=== PATIENT | female | born 1965 | race Asian ===

== ENCOUNTER 2024-12-29 13:51 | Inpatient (IN) | payer MEDICAID, OTHER ==
[~2024-12-29] VITALS: Ht 160 cm; Wt 51.7 kg
[2024-12-29 13:53] VITALS: BP 135/89
[2024-12-29 14:36] LABS: PLATELET COUNT (AUTO) 242 K/uL (179-408); RED BLOOD CELL COUNT(AUTO) 3.95 MIL/uL (3.63-4.92); RED CELL DISTRIBUTION WIDTH 13.5 % (12.3-17.7); WHITE BLOOD COUNT (AUTO) 4.3 K/uL (3.8-11.8)
[2024-12-29 14:42] LABS: CREATININE 0.7 mg/dL (0.6-1.3); SODIUM SERUM 140 mmol/L (136-145); UREA NITROGEN, BLOOD 6 mg/dL (7-18)
[2024-12-29 14:54] LABS: *BILIRUBIN,URIN NEGATIVE (NEGATIVE); *BLOOD, URINE 1+ (NEGATIVE); *CLARITY,URINE CLEAR (CLEAR); *COLOR,URINE YELLOW (YELLOW); *KETONES,URINE NEGATIVE (NEGATIVE); *PROTEIN,URINE NEGATIVE (NEGATIVE); *UROBILINOGEN,URINE 0.2 E.U./dl (NORMAL); LEUKOCYTE ESTERASE ,URINE NEGATIVE (NEGATIVE); NITRITE, URINE NEGATIVE (NEGATIVE); UGLUCOSE 3+ (NEGATIVE)
[2024-12-29 14:58] LABS: ASPARTATE AMINOTRANSFERASE 40 U/L (15-37); TOTAL PROTEIN, SERUM 7.2 g/dL (6.4-8.2)
[2024-12-29 15:01] LABS: SQUAMOUS EPITHELIAL CELL,UR FEW /HPF (NONE SEEN)
[2024-12-29] MEDS ORDERED: DEXTROSE 50% 50 ML DISP.SYRIN IV PRN ×2 (18:45→21:30)
[2024-12-29] MEDS ORDERED: INSULIN REGULAR, HUMAN 1000 UNIT/10 ML VIAL SQ PRN (18:45)
[2024-12-29 18:58] LABS: ETHANOL < 3 MG/DL (0-10)
[2024-12-29 19:00] LABS: *AMPHETAMINE, URINE NEGATIVE (NEGATIVE); *BARBITURATE, URINE NEGATIVE (NEGATIVE); *BENZODIAZEPINE, URINE NEGATIVE (NEGATIVE); *CANNABINOID, URINE POSITIVE (NEGATIVE); *COCCAINE, URINE NEGATIVE (NEGATIVE); *OPIATE, URINE NEGATIVE (NEGATIVE); *PHENCYCLIDINE SCREEN,URINE NEGATIVE (NEGATIVE)
[2024-12-29 19:19] LABS: FENTANYL, URINE NEGATIVE (NEGATIVE)
[2024-12-29] MEDS ORDERED: HYDROCODONE/APAP 5-325MG TABLET PO PRN (19:45)
[2024-12-29] MEDS: METFORMIN HCL 500 MG TABLET PO SCH (20:00)
[2024-12-29] MEDS ORDERED: MAGNESIUM HYDROXIDE 30 ML LIQUID UDC PO PRN (20:30)
[2024-12-29] MEDS ORDERED: MAG HYDROX/AL HYDROX/SIMETH 30 ML LIQUID UDC PO PRN (20:30)
[2024-12-29] MEDS: BLOOD SUGAR DIAGNOSTIC 1 EACH STRIP VI ONE (20:30)
[2024-12-29] MEDS: INSULIN GLARGINE,HUM 300 UNITS/3 ML CARTRIDGE SQ SCH (21:00)
[2024-12-29] MEDS: INSULIN REGULAR, HUMAN 1000 UNIT/10 ML VIAL SQ ONE (21:23)
[2024-12-29] MEDS: BLOOD SUGAR DIAGNOSTIC 1 EACH STRIP VI SCH (21:24)
[2024-12-29] MEDS: INSULIN REGULAR, HUMAN 1000 UNIT/10 ML VIAL SQ SCH (21:30)
[2024-12-29] MEDS ORDERED: INSULIN GLARGINE,HUM 300 UNITS/3 ML CARTRIDGE SQ ONE (21:37)
[2024-12-29] MEDS: LORAZEPAM 1 MG TABLET PO PRN (22:33)
[2024-12-29] MEDS: TEMAZEPAM 7.5 MG CAPSULE PO PRN (23:49)
[2024-12-29] MEDS: ACETAMINOPHEN 325 MG TABLET PO PRN (23:49)
[2024-12-30] MEDS ORDERED: PREG-233 PO (04:58)
[2024-12-30] MEDS ORDERED: GABA300C PO (04:58)
[2024-12-30] MEDS ORDERED: PANT40TA2 PO (04:58)
[2024-12-30] MEDS ORDERED: FLUO40CA49 PO (04:58)
[2024-12-30] MEDS ORDERED: MELA5TAB20 PO (04:58)
[2024-12-30] MEDS ORDERED: BUDE10.2 INH (04:58)
[2024-12-30] MEDS ORDERED: HYDR-4676 PO (04:58)
[2024-12-30] MEDS ORDERED: DOCU100C36 PO (04:58)
[2024-12-30] MEDS ORDERED: ASPI81TA31 PO (04:58)
[2024-12-30] MEDS ORDERED: LIDO30AD10 TD (04:58)
[2024-12-30] MEDS ORDERED: TRAZ-257 PO (04:58)
[2024-12-30] MEDS ORDERED: ROSU40TA PO (04:58)
[2024-12-30] MEDS: BLOOD SUGAR DIAGNOSTIC 1 EACH STRIP VI SCH (06:48)
[2024-12-30 08:07] LABS: SODIUM SERUM 140.0 mmol/L (136-145)
[2024-12-30 08:08] LABS: ASPARTATE AMINOTRANSFERASE 18.0 U/L (15-37); CREATININE 0.7 mg/dL (0.6-1.3); TOTAL PROTEIN, SERUM 6.1 g/dL (6.4-8.2); UREA NITROGEN, BLOOD 7.0 mg/dL (7-18)
[2024-12-30 08:53] VITALS: BP 112/55; TEMP 98; O2SAT 98
[2024-12-30] MEDS: FLUOXETINE HCL 20 MG CAPSULE PO SCH (10:32)
[2024-12-30] MEDS ORDERED: ACET-3752 PO (11:01)
[2024-12-30] MEDS ORDERED: ALBU8.5H8 INH (11:02)
[2024-12-30] MEDS ORDERED: [UNRECOGNIZED DRUG - CODE] RC (11:04)
[2024-12-30] MEDS ORDERED: BENZ1LOZ58 MM (11:04)
[2024-12-30] MEDS ORDERED: ERGO400T7 PO (11:05)
[2024-12-30] MEDS ORDERED: NA P133E RC (11:08)
[2024-12-30] MEDS ORDERED: FLUT16SP16 BNOSTRILS (11:09)
[2024-12-30] MEDS ORDERED: HYDR-4209 PO (11:16)
[2024-12-30] MEDS ORDERED: INSU100V44 SQ (11:17)
[2024-12-30] MEDS ORDERED: IPRA3AMP23 IH (11:18)
[2024-12-30] MEDS ORDERED: lidocaine 5% oint TOP (11:24)
[2024-12-30] MEDS ORDERED: MAGN500T9 PO (11:27)
[2024-12-30] MEDS ORDERED: MELA5TAB PO (11:27)
[2024-12-30] MEDS ORDERED: METF-442 PO (11:28)
[2024-12-30] MEDS ORDERED: METH-806 PO (11:30)
[2024-12-30] MEDS ORDERED: POLY17PO4 PO (11:30)
[2024-12-30] MEDS ORDERED: MULT-213 PO (11:31)
[2024-12-30] MEDS ORDERED: LACT1CAP69 PO (11:32)
[2024-12-30] MEDS ORDERED: METO-295 PO (11:33)
[2024-12-30] MEDS ORDERED: SIME80TA15 PO (11:34)
[2024-12-30] MEDS ORDERED: SITA25TA PO (11:56)
[2024-12-30] MEDS ORDERED: ALBUTEROL SULFATE 8 GM HFA.AER.AD INH PRN (13:00)
[2024-12-30] MEDS ORDERED: BISACODYL 10 MG SUPP.RECT RC PRN (13:00)
[2024-12-30] MEDS ORDERED: SIMETHICONE 80 MG TAB.CHEW PO PRN (13:00)
[2024-12-30] MEDS ORDERED: FLUTICASONE PROP NASAL SPRAY 16 GM BOTTLE NS PRN (13:00)
[2024-12-30] MEDS ORDERED: GABAPENTIN 100 MG CAPSULE PO SCH (13:00)
[2024-12-30] MEDS: GABAPENTIN 100 MG CAPSULE PO PRN (13:11)
[2024-12-30 15:24] VITALS: BP 119/77; TEMP 98; O2SAT 99
[2024-12-30] MEDS ORDERED: ROSUVASTATIN CALCIUM 10 MG TABLET PO SCH (18:00)
[2024-12-30 20:00] VITALS: BP 90/48; TEMP 97.9; O2SAT 97
[2024-12-30] MEDS: PREGABALIN 50 MG CAPSULE PO SCH (20:43)
[2024-12-30] MEDS: ATORVASTATIN 40 MG TABLET PO SCH (20:44)
[2024-12-30] MEDS: TRAZODONE 50 MG TABLET PO SCH (20:44)
[2024-12-30] MEDS: INSULIN REGULAR, HUMAN 300 UNITS/3 ML VIAL SQ SCH (20:58)
[2024-12-30] MEDS: HYDROCODONE/APAP 5-325MG TABLET PO PRN (21:25)
[2024-12-31] MEDS: PANTOPRAZOLE SODIUM 40 MG TABLET.DR PO SCH (06:41)
[2024-12-31] MEDS: LORAZEPAM 1 MG TABLET PO PRN (06:41)
[2024-12-31 08:21] VITALS: BP 97/48; TEMP 98; O2SAT 99
[2024-12-31] MEDS: ASPIRIN 81 MG TAB.CHEW PO SCH (08:37)
[2024-12-31] MEDS: DOCUSATE SODIUM 100 MG CAPSULE PO SCH (08:38)
[2024-12-31] MEDS: LINAGLIPTIN 5 MG TABLET PO SCH (08:38)
[2024-12-31] MEDS: METHOCARBAMOL 500 MG TABLET PO SCH (08:40)
[2024-12-31 16:31] VITALS: BP 102/55; TEMP 98; O2SAT 99
[2024-12-31] MEDS: GABAPENTIN 300 MG CAPSULE PO PRN (18:22)
[2024-12-31 20:16] VITALS: BP 109/58; TEMP 98.1; O2SAT 99
[2024-12-31] MEDS: TEMAZEPAM 15 MG CAPSULE PO PRN (21:41)
[2025-01-01 08:31] VITALS: BP 100/45; TEMP 98; O2SAT 99
[2025-01-01 16:16] VITALS: BP 112/61; TEMP 98; O2SAT 99
[2025-01-01 19:45] VITALS: BP 118/56; TEMP 98.2; O2SAT 96
[2025-01-02] MEDS: GLUCERNA SHAKE 237 ML CAN PO SCH (08:25)
[2025-01-02 08:53] VITALS: BP 146/56; TEMP 98; O2SAT 99
[2025-01-02 16:35] VITALS: BP 144/61; TEMP 98; O2SAT 99
[2025-01-02 20:00] VITALS: BP 115/75; TEMP 98; O2SAT 98
[2025-01-03 16:50] VITALS: BP 131/74; TEMP 97.8; O2SAT 97
[2025-01-03] MEDS: LIDOCAINE 5% PATCH TD PRN (18:06)
[2025-01-03 19:50] VITALS: BP 119/77; TEMP 98.3; O2SAT 100
[2025-01-04 08:17] VITALS: BP 107/44; TEMP 98; O2SAT 99
[2025-01-04 15:11] VITALS: BP 104/58; TEMP 98; O2SAT 99
[2025-01-04] MEDS: LORAZEPAM 1 MG TABLET PO PRN (16:28)
[2025-01-04] MEDS: NICOTINE 14 MG/24HR PATCH TD SCH (17:23)
[2025-01-04 20:00] VITALS: BP 106/72; TEMP 97.7; O2SAT 94
[2025-01-05 09:19] VITALS: BP 104/58; TEMP 98; O2SAT 99
[2025-01-05 15:14] VITALS: BP 112/62; TEMP 98; O2SAT 99
[2025-01-05 20:21] VITALS: BP 110/54; TEMP 98.1; O2SAT 100
[2025-01-06 08:17] VITALS: BP 100/59; TEMP 98.2; O2SAT 94
[2025-01-06 15:44] VITALS: BP 108/73; TEMP 98; O2SAT 99
[2025-01-06 20:02] VITALS: BP 112/64; TEMP 97.9; O2SAT 98
[2025-01-06] MEDS: TRAZODONE 50 MG TABLET PO SCH (20:27)
[2025-01-07 08:21] VITALS: BP 117/76; TEMP 98; O2SAT 99
[2025-01-07 16:38] VITALS: BP 95/57; TEMP 98.1; O2SAT 100
[2025-01-07 20:21] VITALS: BP 108/67; TEMP 98.2; O2SAT 96
[2025-01-07] MEDS: TRAZODONE 50 MG TABLET PO SCH (20:22)
[2025-01-08 08:46] VITALS: BP 95/61; TEMP 98; O2SAT 99
[2025-01-08] MEDS: ALBUTEROL SULFATE 2.5 MG/ 0.5 ML NEBU NEB PRN (10:40)
[2025-01-08] MEDS ORDERED: IBUPROFEN 600 MG TABLET PO PRN (12:15)
[2025-01-08] MEDS ORDERED: PSEUDOEPHEDRINE HCL 30 MG TABLET PO PRN (12:15)
[2025-01-08 16:37] VITALS: BP 110/76; TEMP 98.1; O2SAT 100
[2025-01-08 20:05] VITALS: BP 100/60; TEMP 98.1; O2SAT 97
[2025-01-09 08:49] VITALS: BP 128/71; TEMP 98; O2SAT 99
[2025-01-09 09:00] LABS: PLATELET COUNT (AUTO) 213 K/uL (179-408); RED BLOOD CELL COUNT(AUTO) 3.36 MIL/uL (3.63-4.92); RED CELL DISTRIBUTION WIDTH 13.7 % (12.3-17.7); WHITE BLOOD COUNT (AUTO) 4.2 K/uL (3.8-11.8)
[2025-01-09 09:11] LABS: CREATININE 0.6 mg/dL (0.6-1.3); SODIUM SERUM 141.0 mmol/L (136-145); UREA NITROGEN, BLOOD 15.0 mg/dL (7-18)
[2025-01-09 11:49] LABS: IRON, SERUM 62 ug/dL (50-175)
[2025-01-09] MEDS: MIRALAX 17 GM POWD.PACK PO PRN (15:19)
[2025-01-09 16:34] VITALS: BP 111/70; TEMP 98.1; O2SAT 100
[2025-01-09] MEDS: METFORMIN HCL 500 MG TABLET PO SCH (17:10)
[2025-01-09 20:08] VITALS: BP 104/60; TEMP 97.9; O2SAT 98
[2025-01-09] MEDS: ATORVASTATIN 20 MG TABLET PO SCH (20:57)
[2025-01-10 07:53] VITALS: BP 94/36; TEMP 98.2; O2SAT 94
== END 2025-01-10 14:55 | DRG 750 ==
LOC: ER 13:51 → GPS 17:13
PROVIDERS: ADMIT Psychiatry & Neurology Psychiatry; ATTEND Nurse Practitioner Acute Care
DX: F32.3 Major depressive disorder, single episode, severe with psychotic features (principal); F22 Delusional disorders; E11.65 Type 2 diabetes mellitus with hyperglycemia; I10 Essential (primary) hypertension; R45.851 Suicidal ideations; G89.29 Other chronic pain; E11.42 Type 2 diabetes mellitus with diabetic polyneuropathy; E78.5 Hyperlipidemia, unspecified; F43.10 Post-traumatic stress disorder, unspecified; F41.9 Anxiety disorder, unspecified; Z91.199 Patient's noncompliance with other medical treatment and regimen due to unspecified reason; Z98.890 Other specified postprocedural states; R00.1 Bradycardia, unspecified
CPT/HCPCS: 36415; 83550; 83735; 84100; 84443; 84484; 85025; G0480; J1815; J8499